=== PATIENT | female | born 1985 | race Two or more races ===

== ENCOUNTER 2025-04-23 07:38 | Inpatient (IN) | payer OTHER ==
[~2025-04-23] VITALS: Ht 157.5 cm; Wt 99.0 kg
[2025-04-23] VITALS (9 sets, daily range): BP systolic 118–162; BP diastolic 74–89; PULSE 60–78; RESP 16–22; TEMP 97.9–98.1; O2SAT 93–99
--- NOTE | 2025-04-23 07:45 | ECG ---
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
--- NOTE | 2025-04-23 08:10 | ED.PDOC ---
HPI Comments A 39 YEAR OLD FEMALE PRESENTS TO THE ED WITH COMPLAINT OF CHEST PAIN . PATIENT STATES SHE HAS BEEN HAVING CHEST PAIN SINCE 5:30 A.M. PATIENT STATES THE PAIN IS SUBSTERNAL, RADIATING TO HER ESOPHAGUS AND RADIATING TO THE RIGHT UPPER BACK. PATIENT STATES THE PAIN IS BURNING IN NATURE, CONSTANT BUT DENIES ANY ASSOCIATED EXACERBATING OR RELIEVING FACTORS. PATIENT STATES SHE HAS CURRENT STRESSORS AT HOME OF FAMILY. PATIENT DENIES ANY PAST CARDIAC HISTORY PATIENT STATES SHE HAS HAD THESE SYMPTOMS EARLIER THIS YEAR. PATIENT DENIES FEVER, CHILLS, SHORTNESS OF BREATH, CHEST PAIN, ABDOMINAL PAIN, NAUSEA, VOMITING, HEADACHE, OR OTHER COMPLAINTS. NO OTHER SYMPTOMS OR MODIFYING FACTORS AT THIS TIME. PATIENT IS ALERT, ORIENTED X 4, AND HAS STEADY GAIT. Chief Complaint: Chest Pain Time Seen by MD: 08:05 Reviewed Notes: Nurses Notes, Medications, Allergies Allergies: Uncoded Allergies: SULFA (Allergy, Unknown, 04/23/25) Information Source: Patient Mode of Arrival: Ambulatory Brought in by: SELF Severity: Moderate Timing: Hours Duration: Since onset Prehospital treatment: None Location: Chest (R) Radiation: Back Onset: At Rest History of: Similar pain in past Modifying Factors: Other Associated Signs and Symptoms: N/V Past Medical History PAST MEDICAL HISTORY: Denies Surgical History: Denies all surgeries LAPEL PADDER History: Denies all LAPEL PADDER Hx Family History Family History: Reviewed,noncontributory to illness Social History Smoker: Non-Smoker Alcohol: Denies ETOH Use Drugs: Denies Drug Use Lives In: Home Constitutional: reports: others (ANXIOUS ); denies: chills, diaphoresis, fatigue, fever, malaise, sweats, weakness EENTM: denies: blurred vision, double vision, ear bleeding, ear discharge, ear drainage, ear pain, ear ringing, eye pain, eye redness, hearing loss, mouth pain, mouth swelling, nasal discharge, nose bleeding, nose congestion, nose pain, photophobia, tearing, throat pain, throat swelling, voice changes, others Respiratory: denies: cough, hemoptysis, orthopnea, SOB at rest, shortness of breath, SOB with excertion, stridor, wheezing, others Cardiovascular: reports: chest pain; denies: dizzy spells, diaphoresis, Dyspnea on exertion, edema, irregular heart beat, left arm pain, lightheadedness, palpitations, PND, syncope, others Gastrointestinal: reports: nausea, vomiting; denies: abdomen distended, abdominal pain, blood streaked bowels, constipated, diarrhea, dysphagia, difficulty swallowing, hematemesis, melena, poor appetite, poor fluid intake, rectal bleeding, rectal pain, others Genitourinary: denies: abnormal vagina bleeding, burning, dyspareunia, dysuria, flank pain, frequency, hematuria, incontinence, pain, , vagina discharge, urgency, others Neurological: denies: dizziness, fainting, headache, left sided numbness, left sided weakness, numbness, paresthesia, pre-existing deficit, right sided numbness, right sided weakness, seizure, speech problems, tingling, tremors, weakness, others Musculoskeletal: denies: back pain, gout, joint pain, joint swelling, muscle pain, muscle stiffness, neck pain, others Integumetry: denies: bruises, change in color, change in hair/nails, dryness, laceration, lesions, lumps, rash, wounds, others Allergic/Immunocompromised: denies: Difficulty Healing, Frequent Infections, Hives, Itching, others Hematologic/Lymphatic: denies: anemia, blood clots, easy bleeding, easy bruising, swollen glands, others Endocrine: denies: excessive hunger, excessive sweating, excessive thirst, excessive urination, flushing, intolerance to cold, intolerance to heat, unexplained weight gain, unexplained weight loss, others Psychiatric: denies: anxiety, bipolar disorder, depression, hopeless, panic disorder, schizophrenia, sleepless, suicidal, others All Other Systems: Reviewed and Negative Physical Exam General Appearance: Mild Distress, Normal, Other (ANXIOUS ) HEENT: Normal ENT Inspection, PERRL/EOMI, Pharynx Normal, TMs Normal Neck: Full Range of Motion, Non-Tender, Normal, Normal Inspection Respiratory: Chest Non-Tender, Lungs Clear, No Accessory Muscle Use, No Respiratory Distress, Normal Breath Sounds Cardiovascular: No Edema, No JVD, No Murmur, No Gallop, Normal Peripheral Pulses, Regular Rate/Rhythm Breast Exam: Deferred Gastrointestinal: No Organomegaly, Non Tender, No Pulsatile Mass, Normal Bowel Sounds, Soft Genitalia: Deferred Pelvic: Deferred Rectal: Deferred Extremities: No calf tenderness, Normal capillary refill, Normal inspection, Normal range of motion, Non-tender, No pedal edema Musculoskeletal : Apperance: Normal Neurologic: Alert, attenuator II-XII nml as Tested, No Motor Deficits, Normal Affect, Normal Mood, No Sensory Deficits Cerebellar Function: Normal Reflexes: Normal Skin: Dry, Normal Color, Warm Peripheral Pulses: 2+ carotid (R), 2+ carotid (L) Lymphatic: No Adenopathy EKG EKG : Pulse Rate (adult): 71 [place]: Normal Cardiac Rhythm: NSR Block: None Hypertrophy: LAE ST: Normal Was a procedure done? Was a procedure done?: No CP Differential Dx Differential Diagnosis: A-fib, A-Flutter, Angina, Anxiety / Panic Attack, Hyperthyroidism, Hyperventilation Differential Diagnosis: Chest Wall Pain, Costochondritis, Esophageal reflux/spasm, Gastritis, Myocardial Infarction X-Ray, Labs, Meds, VS Vital Signs Date Time Temp Pulse Resp B/P (MAP) Pulse Ox O2 Delivery O2 Flow Rate FiO2 04/23/25 08:51 68 04/23/25 08:10 71 04/23/25 07:52 97.8 80 18 150/105 98 97.8 04/23/25 07:44 71 Lab Test 04/23/25 09:02 04/23/25 07:50 Range/Units Troponin I High Sensitivity Pending 58 *H </=34 ng/L White Blood Count Pending Red Blood Count Pending Hemoglobin Pending Hematocrit Pending Mean Corpuscular Volume Pending Mean Corpuscular Hemoglobin Pending Mean Corpuscular Hemoglobin Concent Pending Red Cell Distribution Width Pending Platelet Count Pending Mean Platelet Volume Pending Neutrophils (%) (Auto) Pending Lymphocytes (%) (Auto) Pending Monocytes (%) (Auto) Pending Basophils (%) (Auto) Pending Neutrophils # (Auto) Pending Lymphocytes # (Auto) Pending Monocytes # (Auto) Pending Sodium Level 139 136-145 mmol/L Potassium Level 4.2 3.5-5.1 mmol/L Chloride Level 106 98-107 mmol/L Carbon Dioxide Level 22 20-31 mmol/L Anion Gap 11 5-15 Blood Urea Nitrogen 7 L 9-23 mg/dL Creatinine 0.68 0.550-1.02 mg/dL Glomerular Filtration Rate Calc 112 >90 mL/min BUN/Creatinine Ratio 10.3 10.0-20.0 Serum Glucose 100 74-106 mg/dL Calcium Level 9.5 8.7-10.4 mg/dL Total Bilirubin 0.5 0.2-1.0 mg/dL Aspartate Amino Transferase (AST) 22 13-40 U/L Alanine Aminotransferase (ALT) 22 7-40 U/L Alkaline Phosphatase 105 46-116 U/L Total Protein 8.0 5.7-8.2 g/dL Albumin 4.5 3.2-4.8 g/dL Thyroid Stimulating Hormone (TSH) 2.48 0.55-4.78 uIU/mL [place] [address] Ph: [phone] DIAGNOSTIC IMAGING Diagnostic Imaging Report : [id number] Signed PATIENT: JESUS ALBERTO MARIANO ACCT: [id number] UNIT: [id number] : 1985 LOC: ER ROOM / BED: / AGE / SEX: 39 / F ADM STATUS: REG ER SERVICE 3 ORDERING PHYSICIAN: LINDA SAUL MD PROCEDURE(s): CXRP - CHEST PORTABLE REASON: CHEST PAIN ORDER NUMBER(s): [id number], ACCESSION NUMBER(s): [id number] CHEST RADIOGRAPH Indication: CHEST PAIN Technique: XY CHEST PORTABLE Comparison: None FINDINGS: The cardiac silhouette is unremarkable. The lungs demonstrate no pulmonary airspace consolidation. The pulmonary vasculature is unremarkable. There is no pleural effusion. There is no pneumothorax. IMPRESSION: No pulmonary airspace consolidation. ATED BY: RENATA STARR MD DICTATED DATE/TIME: 04/23/25827 SIGNED BY: RENATA STARR MD SIGNED DATE/TIME: 04/23/25827 CC: X-Ray, Labs, Meds, VS Comment COURSE: EXTERNAL MEDICAL RECORDS REVIEWED: [NONE] INDEPENDENT HISTORIANS: [NONE] SOCIAL DETERMINANTS OF HEALTH: [NONE] LABS ORDERED: CBC, CMP, 3 TIMES EKG, 3 TIMES TROPONIN, TSH REVIEWED AND INTERPRETED RESULTS: NONE IMAGING ORDERED: NONE TREATMENTS ORDERED: ASA 162 MG, MORPHINE, NITRO, ZOFRAN 4 MG, 1 L NORMAL SALINE. PROCEDURES PERFORMED: NONE CRITICAL CARE TIME: NONE I HAVE DISCUSSED THE PATIENT WITH THE ATTENDING PHYSICIAN DR. SAUL AND HE AGREES WITH THE PATIENT'S PLAN OF CARE AND DISPOSITION. PATIENT WILL BE ADMITTED TO THE HOSPITALIST TEAM FOR THE FOR EVALUATION PATIENT HAS A NOTED ACUTE ATYPICAL CHEST PAIN AND ELEVATED TROPONINS. PATIENT WILL NEED FURTHER CARDIAC WORKUP AND CONSULTATION. Time of 1ST Reevaluation: 08:35 Reevaluation 1ST: Unchanged Time of 2ND Reevaluation: 09:00 Reevaluation 2ND: Unchanged Patient Education/Counseling: Diagnosis, Treatment Family Education/Counseling: Diagnosis, Treatment SEPSIS Sepsis Screen Date sepsis recognized/suspect: Apr 23, 2025 Time Sepsis recognized/suspect: 752 Recent Procedure: No On Antibiotic Therapy: No Respiratory Rate >20: No Heart Rate >90: No Temp<36 C (96.8 F) or >38.3 C: No SBP <90 or MAP <65 mmHG: No New Acute Mental Status Change: No Is the patient on CPAP, BIPAP,: No Physician Orders Complete Blood Count (04/23/25 07:40) Chest Portable (04/23/25 07:44) Troponin-I Hs (04/23/25 08:40) Troponin-I Hs (04/23/25 10:40) Electrocardigram (04/23/25 08:40) Electrocardigram (04/23/25 10:40) Graduate Teaching Assistant (04/23/25 08:46) Blood Pressure (04/23/25 08:46) Pulse Oximetry (04/23/25 08:46) * Cardiology Consult (04/23/25 08:56) Echo 2d Mode Cardiac Dop (04/23/25 09:11) Vital Signs Date Time Temp Pulse Resp B/P (MAP) Pulse Ox O2 Delivery O2 Flow Rate FiO2 04/23/25 08:51 68 04/23/25 08:10 71 04/23/25 07:52 97.8 80 18 150/105 98 97.8 04/23/25 07:44 71 Laboratory Tests Test 04/23/25 07:50 White Blood Count Pending Departure 1 Departure Time of Disposition: 09:00 Impression: Primary Impression: Acute chest pain Additional Impression: Elevated troponin Disposition: 09 ADMITTED INPATIENT Condition: Serious Critical Care Note Critical Care Time?: No Stability Stability form required: Yes Unstable for transfer: Requires medication, ED Physician Assesment, Possible ra pid decline Heart Score Heart Score: Heart Score Response (Comments) Value History N/A 0 EKG Normal 0 Age <45 0 Risk Factors No known risk factors 0 Troponin 1-2 x's Normal limit 1 Total 1 I personally scribed for RAMILA BRADFORD ([email or web address]) on 04/23/25 at 08:10. Electronically submitted by Norberto Macdonald (ISIS). I personally scribed for RAMILA BRADFORD ([email or web address]) on 04/23/25 at 08:18. Electronically submitted by Norberto Macdonald (ISIS). I personally scribed for RAMILA BRADFORD ([email or web address]) on 04/23/25 at 08:38. Electronically submitted by Norberto Macdonald (ISIS). I personally scribed for RAMILA BRADFORD ([email or web address]) on 04/23/25 at 09:02. Electronically submitted by Norberto Macdonald (ISIS). RAMILA BRADFORD Apr 23, 2025 08:10
[2025-04-23] MEDS: LIDOCAINE VISCOUS 2% 15ML UD PO ONE (08:18)
[2025-04-23] MEDS: MAALOX PLUS or MAALOX 30 ML PO ONE (08:19)
[2025-04-23] MEDS: FAMOTIDINE 20 MG TAB PO ONE (08:20)
[2025-04-23] MEDS: DONNATAL 5ml ORAL Elix (BELLADONNA ALK-PHENOBARB) PO ONE (08:23)
--- NOTE | 2025-04-23 08:25 | DVH ---
CHEST RADIOGRAPH Indication: CHEST PAIN Technique: XY CHEST PORTABLE Comparison: None FINDINGS: The cardiac silhouette is unremarkable. The lungs demonstrate no pulmonary airspace consolidation. The pulmonary vasculature is unremarkable. There is no pleural effusion. There is no pneumothorax. IMPRESSION: No pulmonary airspace consolidation.
[2025-04-23 08:31] LABS: Alanine Aminotransferase 22 U/L (7-40); Albumin 4.5 g/dL (3.2-4.8); Alkaline Phosphatase 105 U/L (46-116); Anion Gap 11 (5-15); BUN/Creatinine Ratio 10.3 (10.0-20.0); Calcium 9.5 mg/dL (8.7-10.4); Carbon Dioxide 22 mmol/L (20-31); Chloride 106 mmol/L (98-107); Glucose 100 mg/dL (74-106); Potassium 4.2 mmol/L (3.5-5.1); Sodium 139 mmol/L (136-145); Total Protein 8.0 g/dL (5.7-8.2)
[2025-04-23 08:32] LABS: Bilirubin, Total 0.5 mg/dL (0.2-1.0)
[2025-04-23 08:37] LABS: Blood Urea Nitrogen 7 mg/dL (9-23)
--- NOTE | 2025-04-23 09:12 | DVHHP2 ---
Admitting Diagnosis: Chest pain History of Present Illness A 39 YEAR OLD FEMALE PRESENTS TO THE ED WITH COMPLAINT OF CHEST PAIN . PATIENT STATES SHE HAS BEEN HAVING CHEST PAIN SINCE 5:30 A.M. PATIENT STATES THE PAIN IS SUBSTERNAL, RADIATING TO HER ESOPHAGUS AND RADIATING TO THE RIGHT UPPER BACK. PATIENT STATES THE PAIN IS BURNING IN NATURE, CONSTANT BUT DENIES ANY ASSOCIATED EXACERBATING OR RELIEVING FACTORS. PATIENT STATES SHE HAS CURRENT STRESSORS AT HOME OF FAMILY. PATIENT DENIES ANY PAST CARDIAC HISTORY PATIENT STATES SHE HAS HAD THESE SYMPTOMS EARLIER THIS YEAR. PATIENT DENIES FEVER, CHILLS, SHORTNESS OF BREATH, CHEST PAIN, ABDOMINAL PAIN, NAUSEA, VOMITING, HEADACHE, OR OTHER COMPLAINTS. NO OTHER SYMPTOMS OR MODIFYING FACTORS AT THIS TIME. PATIENT IS ALERT, ORIENTED X 4, AND HAS STEADY GAIT. PAST MEDICAL HISTORY: Denies Surgical History: Denies all surgeries FIRE AND SAFETY HELPER History: Denies all FIRE AND SAFETY HELPER Hx Family History Family History: Reviewed,noncontributory to illness Social History Smoker: Non-Smoker Alcohol: Denies ETOH Use Drugs: Denies Drug Use Lives In: Home Allergies: Uncoded Allergies: SULFA (Allergy, Unknown, 04/23/25) Current Medications Current Medications Medications (Trade) Dose Ordered Sig/Sven Route PRN Reason Start Time Stop Time Status Last Admin Sodium Chloride (Saline Lock Ns) 10 ml Q8HR IV 04/23/25 14:00 Docusate Sodium (Colace Capsule) 100 mg BIDPRN PRN PO FOR CONSTIPATION 04/23/25 09:15 Acetaminophen (Tylenol Tablet) 650 mg Q6HP PRN PO PAIN SCALE 1-3 OR TEMP>100.4 04/23/25 09:15 Acetaminophen/ Hydrocodone Bitart ([place] 5/325MG Tab) 1 tab Q4HP PRN PO MODERATE PAIN (4-6 PAIN SCALE) 04/23/25 09:15 Hydromorphone HCl (Dilaudid Injection) 0.5 mg Q4HP PRN IV SEVERE PAIN (7-10 PAIN SCALE) 04/23/25 09:15 Ondansetron HCl (Zofran) 4 mg Q4HP PRN IV NAUSEA / VOMITING 04/23/25 09:15 Enoxaparin Sodium (Lovenox) 40 mg DAILY SC 04/23/25 10:00 Nitroglycerin (Ntrostat Sublingual) 0.4 mg Q5MINP PRN SL FOR CHEST PAIN 04/23/25 09:15 Morphine Sulfate 2 mg Q30M PRN IV FOR CHEST PAIN 04/23/25 09:15 Vital Signs Vital Signs Date Time Temp Pulse Resp B/P (MAP) Pulse Ox O2 Delivery O2 Flow Rate FiO2 04/23/25 10:55 73 18 137/72 04/23/25 10:29 97 Room Air* 0 21 04/23/25 10:24 98.1 98.1 Physical Exam Generally-39 years old woman, overweight, sitting on chair. No apparent distress HEENT-atraumatic Heart-regular rate and rhythm lungs clear to auscultation Abdomen soft nontender nondistended Musculoskeletal-no edema cyanosis Neuro-AO x3 no focal deficits SEPSIS Sepsis Screen Date sepsis recognized/suspect: Apr 23, 2025 Time Sepsis recognized/suspect: 752 Recent Procedure: No On Antibiotic Therapy: No Respiratory Rate >20: No Heart Rate >90: No Temp<36 C (96.8 F) or >38.3 C: No SBP <90 or MAP <65 mmHG: No New Acute Mental Status Change: No Is the patient on CPAP, BIPAP,: No Physician Orders Complete Blood Count (04/23/25 07:40) Chest Portable (04/23/25 07:44) Troponin-I Hs (04/23/25 10:40) Electrocardigram (04/23/25 08:40) Electrocardigram (04/23/25 10:40) Swing Frame Grinder Operator (04/23/25 08:46) Blood Pressure (04/23/25 08:46) Pulse Oximetry (04/23/25 08:46) * Cardiology Consult (04/23/25 08:56) Echo 2d Mode Cardiac Dop (04/23/25 09:11) Admit (04/23/25 09:12) Code Status (04/23/25 09:12) Vital Signs .PER UNIT PROTOCOL (04/23/25 09:12) Review Orders With Adm. (04/23/25 09:12) Encourage Activity As Tolerate (04/23/25 09:12) Sodium Chloride Lock (Saline Lock Ns) (04/23/25 14:00) Docusate Sodium Capsule (Colace Capsule) (04/23/25 09:15) Acetaminophen Tablet (Tylenol Tablet) (04/23/25 09:15) Notify Md Of Changes From Base (04/23/25 09:12) Advance Directive (04/23/25 09:12) Patient Condition (04/23/25 09:12) Allergies (04/23/25 09:12) Hydrocodone-Acet 5/325mg Tab ([place] 5/32 (04/23/25 09:15) Hydromorphone Injection (Dilaudid Inject (04/23/25 09:15) Ondansetron Hcl (Zofran) (04/23/25 09:15) Enoxaparin Sodium (Lovenox) (04/23/25 10:00) Nitroglycerin Sublingual (Ntrostat Subli (04/23/25 09:15) Morphine Sulfate Injection (04/23/25 09:15) Stat Ekg For Chest Pain (04/23/25 09:12) Notify Md Of Changes From Base (04/23/25 09:12) Psychological Tests Sales Agent For 24 Hours (04/23/25 09:12) Emergency Dysrhythmia Protocol (04/23/25 09:12) Rhythm Strips Once Every Shift (04/23/25 09:12) Oxygen By Nasal Cannula (04/23/25 09:12) Vital Signs Date Time Temp Pulse Resp B/P (MAP) Pulse Ox O2 Delivery O2 Flow Rate FiO2 04/23/25 10:55 73 18 137/72 04/23/25 10:29 73 18 97 Room Air* 0 21 04/23/25 10:24 98.1 73 18 137/72 (93) 97 98.1 04/23/25 09:45 72 18 131/68 (89) 98 04/23/25 09:45 131/68 04/23/25 08:51 68 04/23/25 08:10 71 04/23/25 07:52 97.8 80 18 150/105 98 97.8 04/23/25 07:44 71 Laboratory Tests Test 04/23/25 07:50 White Blood Count Pending Medications Medications Dose Ordered Sig/Sven Route Start Time Stop Time Status Last Admin Dose Admin Aspirin 162 mg ONCE ONCE PO 04/23/25 08:45 04/23/25 08:47 DC 04/23/25 10:00 Morphine Sulfate 2 mg ONCE ONCE IV 04/23/25 08:45 04/23/25 08:47 DC 04/23/25 10:55 Nitroglycerin 0.4 mg ONCE ONCE SL 04/23/25 08:45 04/23/25 08:47 DC 04/23/25 09:45 Ondansetron HCl 4 mg ONCE ONCE IV 04/23/25 10:00 04/23/25 10:01 DC 04/23/25 10:54 Sodium Chloride 1,000 ml @ 1,000 mls/hr Q1H ONCE IV 04/23/25 08:45 04/23/25 09:44 DC 04/23/25 10:00 Results Labs Test 04/23/25 09:02 04/23/25 07:50 Range/Units Troponin I High Sensitivity 196 *H </=34 ng/L Sodium Level 139 136-145 mmol/L Potassium Level 4.2 3.5-5.1 mmol/L Chloride Level 106 98-107 mmol/L Carbon Dioxide Level 22 20-31 mmol/L Anion Gap 11 5-15 Blood Urea Nitrogen 7 L 9-23 mg/dL Creatinine 0.68 0.550-1.02 mg/dL Glomerular Filtration Rate Calc 112 >90 mL/min BUN/Creatinine Ratio 10.3 10.0-20.0 Serum Glucose 100 74-106 mg/dL Calcium Level 9.5 8.7-10.4 mg/dL Total Bilirubin 0.5 0.2-1.0 mg/dL Aspartate Amino Transferase (AST) 22 13-40 U/L Alanine Aminotransferase (ALT) 22 7-40 U/L Alkaline Phosphatase 105 46-116 U/L Total Protein 8.0 5.7-8.2 g/dL Albumin 4.5 3.2-4.8 g/dL Thyroid Stimulating Hormone (TSH) 2.48 0.55-4.78 uIU/mL Primary Diagnosis Chest pain rule out ACS Plan Troponin Trend troponin until plateau Check EKG Check echo of the heart Cardiology consult in ED. Further recommendation Cardiology diet Full code Lovenox for DVT prophylaxis No GI prophylaxis needed Plan discussed with: Patient Problems List: (1) Acute chest pain Status: Acute (2) Elevated troponin Status: Acute Date of Service: Apr 23, 2025 Billing Provider: NATALIE ALUGHLIN MD Common Visit Codes: [id number] INP/OBS CARE (HIGH) NATALIE LAUGHLIN MD Apr 23, 2025 09:12
[2025-04-23] MEDS ORDERED: HYDROmorphone HCL 2 MG/ML VL/or syr IV PRN (09:15)
[2025-04-23] MEDS ORDERED: DOCUSATE SOD 100 MG CAP PO PRN (09:15)
[2025-04-23] MEDS ORDERED: NITROGLYCERIN 0.4 MG SL TAB SL PRN (09:15)
[2025-04-23] MEDS: NITROGLYCERIN 0.4 MG SL TAB SL ONE (09:45)
[2025-04-23] MEDS: SODIUM CHLORIDE 0.9% 1,000 ML IV ONE (10:00)
[2025-04-23] MEDS: ENOXAPARIN SOD 40 MG/0.4 ML SYRINGE SC SCH (10:00)
[2025-04-23] MEDS: ONDANSETRON HCL 4 MG/2 ML VIAL IV ONE (10:54)
[2025-04-23] MEDS: MORPHINE SULFATE INJ 2 MG/ml SYRG IV ONE (10:55)
[2025-04-23 11:39] LABS: Hematocrit 43.9 % (36.0-46.0); Hemoglobin 14.3 g/dL (12.2-16.2); Mean Corpuscular Hemoglobin 27.7 pg (28.0-32.0); Mean Corpuscular Volume 84.8 fL (80.0-100.0); Nucleated Red Blood Cells % 0.1 %
--- NOTE | 2025-04-23 12:52 | DVHINCON2 ---
Date Seen: Apr 23, 2025 Referring Physician Shawanda Reason for Consultation CP, Positive Troponins History of Present Illness 39-year-old female with PMH for palpitations presents to the hospital with chest pain. Patient states she has been having these episodes couple of times that started approximately 1 year before. Patient states started feeling her heart racing and beating really strongly and started having chest pain, burning/sharp, retrosternal, radiating to right lower thoracic area, and right upper back. Upon evaluation in the ER patient had initial troponin of 58 trending up to 196, 1602. EKG reviewed and shows sinus rhythm at 71 beats per minute with bord donnell inferolateral ST and T-wave abnormality. Past Medical History No previous cardiac history Past Surgical History No previous cardiac surgeries Social History Denies tobacco, illicit drug use, occasional alcohol beverage. Allergies: Uncoded Allergies: SULFA (Allergy, Unknown, 04/23/25) Current Medications Current Medications Medications (Trade) Dose Ordered Sig/Sven Route PRN Reason Start Time Stop Time Status Last Admin Sodium Chloride (Saline Lock Ns) 10 ml Q8HR IV 04/23/25 14:00 Docusate Sodium (Colace Capsule) 100 mg BIDPRN PRN PO FOR CONSTIPATION 04/23/25 09:15 Acetaminophen (Tylenol Tablet) 650 mg Q6HP PRN PO PAIN SCALE 1-3 OR TEMP>100.4 04/23/25 09:15 Acetaminophen/ Hydrocodone Bitart ([place] 5/325MG Tab) 1 tab Q4HP PRN PO MODERATE PAIN (4-6 PAIN SCALE) 04/23/25 09:15 Hydromorphone HCl (Dilaudid Injection) 0.5 mg Q4HP PRN IV SEVERE PAIN (7-10 PAIN SCALE) 04/23/25 09:15 Ondansetron HCl (Zofran) 4 mg Q4HP PRN IV NAUSEA / VOMITING 04/23/25 09:15 Enoxaparin Sodium (Lovenox) 40 mg DAILY SC 04/23/25 10:00 Nitroglycerin (Ntrostat Sublingual) 0.4 mg Q5MINP PRN SL FOR CHEST PAIN 04/23/25 09:15 Morphine Sulfate 2 mg Q30M PRN IV FOR CHEST PAIN 04/23/25 09:15 Review of Systems Constitutional: No: Fever, Chills, Sweats, Weakness, Malaise, Other Eyes: No: Pain, Vision change, Conjunctivae inflammation, Eyelid inflammation, Other, Redness ENT: No: Ear pain, Ear discharge, Nose pain, Nose discharge, Nose congestion, Mouth pain, Mouth swelling, Throat pain, Throat swelling, Other Respiratory: No: Cough, Dry, Shortness of breath, SOB with exertion, Wheezing, Hemoptysis, Pleuritic Pain, Sputum, Wheezing, Other Cardiovascular: ; No: Chest Pain Palpitations, Orthopnea, Paroxysmal Noc. Dyspnea, Edema, Lt Headedness, Other Gastrointestinal: No: Nausea, Vomiting, Abdominal Pain, Diarrhea, Constipation, Melena, Hematochezia, Other Genitourinary: No Dysuria, No Frequency, No Incontinence, No Hematuria, No Retention, No Other Musculoskeletal: neck pain; No: other, shoulder pain, arm pain, back pain, hand pain, leg pain, foot pain Skin: No: Rash, Lesions, Jaundice, Bruising, Other Neurological: Other (Dizziness, headache.); No: Weakness, Numbness, Incoord ination, Change in speech, Confusion, Seizures Vital Signs Vital Signs Date Time Temp Pulse Resp B/P (MAP) Pulse Ox O2 Delivery O2 Flow Rate FiO2 04/23/25 12:00 71 18 134/76 (95) 97 04/23/25 10:29 Room Air* 0 21 04/23/25 10:24 98.1 98.1 Physical Exam General appearance: Patient is well-developed, well-nourished, in no acute distress. HEENT: Exam shows: Normocephalic, atraumatic, PERRLA, EOMI Neck: Supple, no bruits Chest: Equal chest excursion bilaterally. Breath sounds normal-no rales or wheezes. Heart: Rhythm: Regular rate; no murmur or gallop Abdomen: Exam shows: Soft, nontender, nondistended Musculoskeletal: No clubbing, no cyanosis, no lower extremity edema Dermatology: Skin warm, moist. Neurological: Exam shows: Alert and oriented x4, normal speech Available prior records, labs, EKG, rhythm strips reviewed and interpreted Labs/Diagnostic Data Labs Test 04/23/25 11:10 04/23/25 07:50 Range/Units White Blood Count 14.0 H 4.4-10.8 10^3/uL Red Blood Count 5.18 4.0-5.20 10^6/uL Hemoglobin 14.3 12.2-16.2 g/dL Hematocrit 43.9 36.0-46.0 % Mean Corpuscular Volume 84.8 80.0-100.0 fL Mean Corpuscular Hemoglobin 27.7 L 28.0-32.0 pg Mean Corpuscular Hemoglobin Concent 32.6 32.0-36.0 g/dL Red Cell Distribution Width 14.1 11.8-14.3 % Platelet Count 251 140-450 10^3/uL Mean Platelet Volume 9.9 6.9-10.8 fL Neutrophils (%) (Auto) 85.4 H 37.0-80.0 % Lymphocytes (%) (Auto) 10.1 10.0-50.0 % Monocytes (%) (Auto) 3.5 0.0-12.0 % Eosinophils (%) (Auto) 0.3 0.0-7.0 % Basophils (%) (Auto) 0.7 0.0-2.0 % Neutrophils # (Auto) 12.0 H 1.6-8.6 10 ^3/uL Lymphocytes # (Auto) 1.4 0.4-5.4 10 ^3/uL Monocytes # (Auto) 0.5 0-1.3 10 ^3/uL Eosinophils # (Auto) 0 0-0.8 10 ^3/uL Basophils # (Auto) 0.1 0-0.2 10 ^3/uL Nucleated Red Blood Cells 0.1 % Troponin I High Sensitivity 1602 *H </=34 ng/L Sodium Level 139 136-145 mmol/L Potassium Level 4.2 3.5-5.1 mmol/L Chloride Level 106 98-107 mmol/L Carbon Dioxide Level 22 20-31 mmol/L Anion Gap 11 5-15 Blood Urea Nitrogen 7 L 9-23 mg/dL Creatinine 0.68 0.550-1.02 mg/dL Glomerular Filtration Rate Calc 112 >90 mL/min BUN/Creatinine Ratio 10.3 10.0-20.0 Serum Glucose 100 74-106 mg/dL Calcium Level 9.5 8.7-10.4 mg/dL Total Bilirubin 0.5 0.2-1.0 mg/dL Aspartate Amino Transferase (AST) 22 13-40 U/L Alanine Aminotransferase (ALT) 22 7-40 U/L Alkaline Phosphatase 105 46-116 U/L Total Protein 8.0 5.7-8.2 g/dL Albumin 4.5 3.2-4.8 g/dL Thyroid Stimulating Hormone (TSH) 2.48 0.55-4.78 uIU/mL Assessment * NSTEMI - mild borderline ST and T-wave abnormality on EKG review. Started on heparin drip. Aspirin continue daily. Check lipid panel. Follow up echocardiogram. Recommend cardiac catheterization +/- PCI. All risks, benefits, and alternatives of cardiac catheterization explained to the patient including the risk of stroke, [place], , coronary perforation, pericardial tamponade, contrast induced nephropathy, need for emergent CABG, mechanical support, mechanical ventilation, and bleeding from vascular complications from the procedure. Patient is agreeable to proceed with procedure. * Palpitations- continue telemetry monitoring. Check TSH/T4. If no significant events noted during admission recommend outpatient event monitoring. Case Discussed with Dr Michel. Continue telemetry monitoring for arrhythmias. Continue trending troponins. Started on heparin drip ACS protocol. Follow up echo cardiogram. Check UDS. Planned coronary angiogram. Keep NPO. Critical care, time spent: 49 minutes This medical document was created using an electronic medical record system with voice recognition software and computerized dictation system. Although this document has been carefully reviewed, there might still be some phonetic and typographical errors. Occasional wrong-word or ``sound-alike substitutions may have occurred due to the inherent limitations of voice recognition software. These areas are purely typographical due to imperfections of the software programs and do not reflect any compromise in the patient's medical care. Please read the chart carefully and recognize, using context, where these substitutions have occurred. Thank you for allowing me to participate in the management of this patient. The treatment plan was discussed with and agreed upon by patient/family including requesting consultants and ordering of imaging/procedures. Plan discussed with: Patient NYHA Physical activity limitations: Class2(Slight)fatigue,sob Date of Service: Apr 23, 2025 Billing Provider: JACQUELINE MIRANDA Cardiology Common Codes: 88301-[id number] INP/OBS CARE (High), [id number]-CYBHPSVO CARE 30-74 MIN JACQUELINE MIRANDA Apr 23, 2025 12:51
[2025-04-23 13:30] LABS: Opiate Scree,Urine Neg (NEGATIVE)
[2025-04-23] MEDS: VERAPAMIL 2.5MG/ML INJ 2ML VIAL IV ONE (13:30)
[2025-04-23] MEDS: ANGIOMAX 250 MG VIAL IV ONE (13:30)
[2025-04-23] MEDS: HEPARIN SODIUM (PORCINE) 5000 UNITS/ML 1ML VIAL ONE (13:30)
[2025-04-23 13:31] LABS: Amphetamine Screen, Urine Neg (NEGATIVE); Barbiturate Scree,Urine Neg (NEGATIVE); Benzodiazephine Screen, Urine Neg (NEGATIVE); Cannabinoid Screen, Urine Neg (NEGATIVE); Cocaine Screen, Urine Neg (NEGATIVE); Phencyclidine Screen, Urine Neg (NEGATIVE)
[2025-04-23] MEDS: MIDAZOLAM HCL 2MG/2ML 2ml VIAL (1mg/ml) ONE (13:31)
[2025-04-23] MEDS: fentaNYL CITRATE 100 MCG/2 ML VL ONE (13:31)
[2025-04-23] MEDS: SODIUM CHL 0.9% 0 ML ONE (13:32)
[2025-04-23] MEDS: IODIXANOL 320MG/ML 100ML BTL IV ONE (13:32)
[2025-04-23] MEDS: LIDOCAINE 2%HCL (LOCAL ANESTH.) INJ 20ML MDV ONE (13:32)
[2025-04-23] MEDS: NITROGLYCERIN 50MG/250ML 250 ML IV ONE (13:37)
[2025-04-23] MEDS: SODIUM CHLOR 0.9% PF (SALINE LOCK) 10ML VIAL/SYR IV SCH (14:00)
[2025-04-23] MEDS: SODIUM CHLORIDE 0.9% 1,000 ML IV SCH (15:12)
--- NOTE | 2025-04-23 15:35 | DVHOP ---
DATE OF SURGERY: 04/23/2025 TECHNIQUES PERFORMED: * Emergency case. * Ultrasound of right radial artery, management of conscious sedation. * Ultrasound-guided insertion of a 6-[place] arterial line in the right radial artery. * Left heart cath. * Left ventriculogram. * [place] selective left and right coronary artery angiography. ASSISTANTS: Assisted by our staff is Sera. Other assistants Felix Velasco, Sandra. INDICATIONS: The patient came with chest pain. Troponin keep on going, now it is more than 1000. DESCRIPTION OF PROCEDURE: As follows: Risks and benefits discussed. Counseling done, questions answered, information given and the patient had been brought to our systems testing laboratory technician. The patient's right radial area thoroughly cleaned with soap and Betadine and we had done ultrasound. A 6-[place] arterial line also had been placed in the right radial artery. We had put a TIG catheter 5-[place] 4.0 and the left coronary angiography was done after giving the cocktail of 100 mcg of the nitroglycerin, 2.5 mg of verapamil, 2000 units of the heparin in the right radial artery. Left coronary angiography was done with the help of a similar catheter. We also did a right coronary angiography with the help of the pigtail catheter. A complete left heart cath also had been done. The left ventriculogram was done in the right anterior oblique view with a total of 20 mL of dye. Post LV gram, left ventricular angiography had been performed with the help of pull-through technique. Aortic pressure also had been performed. J-wire was passed. Pigtail catheter also had been discontinued. Procedure completed. TR Band applied. IMPRESSION: * Normal left main. * Left anterior descending artery is a large artery, normal. Diagonal artery normal. * Circumflex, obtuse marginal artery are moderately large artery and is widely open. * The tiny branches coming out from the circumflex artery have a mild diffuse disease, but there is no stenosis and the smaller branches have diameter less than 1 mm. * The patient's right coronary artery is a large dominant artery and widely open and is normal. * The ejection fraction of the left ventricle is in the range of 65% and is normal. There is no wall motion abnormality. CONCLUSION: * There is no evidence to suggest any coronary artery occlusive disease. * There is a mild disease noted in the ____ branches coming out from the circumflex artery which is considered to be nonsignificant. * The ejection fraction of the right ventricle is 65% plus and is normal. PLAN OF ACTION: Advised for conservative medical treatment. Gregory Michel MD MP/MARIANGEL/LUCILA TID: [id number] RECEIPT: [id number]
--- NOTE | 2025-04-23 16:20 | DVHSR ---
APPROVED REPORT EXAM: LIMITED Two-dimensional and M-mode echocardiogram with Doppler and color Doppler. Blood Pressure: 150/105 mmHg INDICATION Chest Pain RISK FACTORS Obesity: Height: 5' 2", Weight: 191 DIMENSIONS LVDd 5.1 (3.8-5.7cm) LA (2D) 4.0 (1.9-4.0cm) Aortic Root 3.0 (2.0-3.7cm) LVDs 3.6 (2.5-4.0cm) LA (MM) (1.9-4.0cm) Aortic Cusp Exc 1.9 (1.5-2.0cm) EF (%) 55.0 (55-70%) Rt. Atrium 3.8 (1.9-4.0cm) Asc. Aorta cm IVSd 0.8 (0.7-1.1cm) RV (D) (1.8-2.4cm) PWd 0.9 (0.7-1.1cm) Mitral Valve Mitral Mitral Stenosis E wave 1.00m/s MV Mean GR. mmHg A wave 0.90m/s MV Peak GR. mmHg E/A ratio 1.1 2D MVA cm2 Aortic Valve Aortic Valve Aortic Stenosis V1 1.10m/s AO Mean GR. 6mmHg V2 1.50m/s AO Peak GR. 10mmHg LVOT Diameter 2.3 (1.8-2.4cm) Doppler CELESTINO 3.05cm2 Pulmonic Valve V2 0.90m/s Tricuspid Valve TR Velocity 2.30m/s RVSP 25mmHg Other Information Quality : Technically Limited Rhythm : Technically limited study due to body habitus. Conclusion NORMAL LV EF AND IS 65% NORMAL VALVES NORMAL RV FUNCTION NO EFFUSION
[2025-04-23] MEDS: IOHEXOL 350 MG/ML 100ML IJ ONE (17:12)
[2025-04-23] MEDS ORDERED: SEMA2INJ3 SC (17:35)
--- NOTE | 2025-04-23 18:11 | DVH ---
COMPUTERIZED TOMOGRAPHIC ANGIOGRAPHY OF THE CHEST WITH INTRAVENOUS CONTRAST REASON FOR EXAM: r/o PE COMPARISON: XY CHEST PORTABLE on DOS: 04/23/25 TECHNIQUE: The exam was performed on a multidetector spiral scanner. Spiral images were acquired from the thoracic inlet through the adrenal glands, during the bolus intravenous administration of contrast. Multiplanar maximum intensity projection (MIP) images were provided. Radiation optimization: All CT scans at this facility use at least one of these dose optimization techniques: Automated exposure control mA and/or kV adjustment per patient size (includes targeted exams where dose is matched to clinical indication) or iterative reconstruction. CONTRAST ADMINISTERED: 70 mL omnipaque 350 intravenously. RADIATION DOSE: CTDI: 26.86 mGy DLP: 954.08 mGy-cm FINDINGS: There is a 5 mm pleural-based nodule along the medial base of the right lower lobe. There is no bronchiectasis or honeycombing. There is no significant airspace disease. There is no pleural effusion. There is no pneumothorax. The visualized thyroid gland is unremarkable. The heart is at the upper limits of normal for size. There is no pericardial effusion. There is no thoracic aortic aneurysm. No pathologic lymphadenopathy is identified by size criteria. There is no pulmonary arterial filling defect as far as the subsegmental level to suggest pulmonary embolism. No acute osseous abnormality is identified. IMPRESSION: No evidence of pulmonary embolism as far as the subsegmental level. No thoracic aortic aneurysm. There is a 5 mm pleural-based nodule along the medial base of the right lower lobe of the lung. The Fleischner society guidelines are listed below for follow- up recommendation reference. Fleischner Society Guidelines for Incidental Pulmonary Nodules: SOLID NODULES Single low-risk: < 6 mm No follow up. 6-[address] at 6-12 months, then consider CT at 18-24 months. > [address] at 3 months, PET/CT or bx. Single high risk: < [address] at 12 months. 6-[address] at 6-12 months, then consider CT at 18-24 months. > [address] at 3 months, PET/CT or bx. Multiple low risk: < 6 mm No follow up. 6-[address] at 3-6 months, then consider CT at 18-24 months. > [address] at 3-6 months, then consider CT at 18-24 months. Multiple high risk: < [address] at 12 months. 6-[address] at 3-6 months, then CT at 18-24 months. > [address] at 3-6 months, then CT at 18-24 months. SUBSOLID NODULES Ground glass: < 6 mm No follow up. > [address] at 6-12 months, then CT every 2 years for 5 years. Part solid: < 6 mm No follow up. > [address] at 3-6 months. If stable with solid component <6mm, annual CT for 5 years. Multiple: < [address] at 3-6 months. If stable, consider CT at 2 and 4 years. > [address] at 3-6 months. Subsequent based on most suspicious nodule. Notes: Recommendations do not apply to cancer screening, patient with immunosuppression or known primary cancer. Reference: Radiology 2017; MacChristopherhon et al; 000:1-16
--- NOTE | 2025-04-23 18:42 | ECG ---
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
[2025-04-23] MEDS: ACETAMINOPHEN 325 MG TAB PO PRN (19:49)
--- NOTE | 2025-04-23 21:19 | ECG ---
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
[2025-04-23] MEDS: MORPHINE SULFATE INJ 2 MG/ml SYRG IV PRN (21:27)
--- NOTE | 2025-04-23 23:08 | DVHINCON2 ---
Date Seen: Apr 23, 2025 Referring Physician Shawanda Reason for Consultation CP, Positive Troponins History of Present Illness This is a 39-year-old female with a PMH of palpitations presents to the hospital with chest pain. Patient states she has been having these episodes couple of times that started approximately 1 year before. Patient states started feeling her heart racing and beating really strongly and started having chest pain, burning/sharp, retrosternal, radiating to right lower thoracic area, and right upper back. Upon evaluation in the ED patient had initial troponin of 58 trending up to 196, 1602. EKG reviewed and shows sinus rhythm at 71 beats per minute with borderline inferolateral ST and T-wave abnormality. Chest x-ray showed NAD. Patient was admitted to the hospital. I am asked to consult on this patient. Past Medical History No previous cardiac history Past Surgical History No previous cardiac surgeries Allergies: Uncoded Allergies: SULFA (Allergy, Unknown, 04/23/25) Home Meds Reported Medications Semaglutide (Ozempic) 2 Mg/3 Ml Inj, 2 MG SC, INJ 04/23/25 Current Medications Current Medications Medications (Trade) Dose Ordered Sig/Sven Route PRN Reason Start Time Stop Time Status Last Admin Sodium Chloride (Saline Lock Ns) 10 ml Q8HR IV 04/23/25 14:00 Docusate Sodium (Colace Capsule) 100 mg BIDPRN PRN PO FOR CONSTIPATION 04/23/25 09:15 Acetaminophen (Tylenol Tablet) 650 mg Q6HP PRN PO PAIN SCALE 1-3 OR TEMP>100.4 04/23/25 09:15 Acetaminophen/ Hydrocodone Bitart ([place] 5/325MG Tab) 1 tab Q4HP PRN PO MODERATE PAIN (4-6 PAIN SCALE) 04/23/25 09:15 Hydromorphone HCl (Dilaudid Injection) 0.5 mg Q4HP PRN IV SEVERE PAIN (7-10 PAIN SCALE) 04/23/25 09:15 Ondansetron HCl (Zofran) 4 mg Q4HP PRN IV NAUSEA / VOMITING 04/23/25 09:15 Enoxaparin Sodium (Lovenox) 40 mg DAILY SC 04/23/25 10:00 Nitroglycerin (Ntrostat Sublingual) 0.4 mg Q5MINP PRN SL FOR CHEST PAIN 04/23/25 09:15 Morphine Sulfate 2 mg Q30M PRN IV FOR CHEST PAIN 04/23/25 09:15 Review of Systems Constitutional: No: Fever, Chills, Sweats, Weakness, Malaise, Other Eyes: No: Pain, Vision change, Conjunctivae inflammation, Eyelid inflammation, Other, Redness ENT: No: Ear pain, Ear discharge, Nose pain, Nose discharge, Nose congestion, Mouth pain, Mouth swelling, Throat pain, Throat swelling, Other Respiratory: No: Cough, Dry, Shortness of breath, SOB with exertion, Wheezing, Hemoptysis, Pleuritic Pain, Sputum, Wheezing, Other Cardiovascular: ; No: Chest Pain Palpitations, Orthopnea, Paroxysmal Noc. Dyspnea, Edema, Lt Headedness, Other Gastrointestinal: No: Nausea, Vomiting, Abdominal Pain, Diarrhea, Constipation, Melena, Hematochezia, Other Genitourinary: No Dysuria, No Frequency, No Incontinence, No Hematuria, No Retention, No Other Musculoskeletal: neck pain; No: other, shoulder pain, arm pain, back pain, hand pain, leg pain, foot pain Skin: No: Rash, Lesions, Jaundice, Bruising, Other Neurological: Other (Dizziness, headache.); No: Weakness, Numbness, Incoordination, Change in speech, Confusion, Seizures Vital Signs Vital Signs Date Time Temp Pulse Resp B/P (MAP) Pulse Ox O2 Delivery O2 Flow Rate FiO2 04/23/25 12:15 66 04/23/25 12:00 18 134/76 (95) 97 04/23/25 10:29 Room Air* 0 21 04/23/25 10:24 98.1 98.1 Physical Exam GENERAL: Alert and oriented x 3. No acute distress. EYES: PERRL, EOMI. Anicteric. HENT: Moist mucous membranes. LUNGS: Clear to auscultation bilaterally. CARDIOVASCULAR: Regular rate and rhythm. ABDOMEN: Soft, nontender and nondistended. EXTREMITIES: No edema. NEUROLOGIC: No focal neurological deficits. SKIN: Warm, dry. Labs/Diagnostic Data Labs Test 04/23/25 13:13 04/23/25 11:55 04/23/25 11:10 04/23/25 07:50 Range/Units Urine Test Negative Negative Urine Opiates Screen Neg NEGATIVE Urine Fentanyl Screen Neg NEGATIVE Urine Barbiturates Screen Neg NEGATIVE Urine Phencyclidine Screen Neg NEGATIVE Urine Amphetamines Screen Neg NEGATIVE Urine Benzodiazepines Screen Neg NEGATIVE Urine Cocaine Screen Neg NEGATIVE Urine Cannabinoids Screen Neg NEGATIVE White Blood Count 14.0 H 4.4-10.8 10^3/uL Red Blood Count 5.18 4.0-5.20 10^6/uL Hemoglobin 14.3 12.2-16.2 g/dL Hematocrit 43.9 36.0-46.0 % Mean Corpuscular Volume 84.8 80.0-100.0 fL Mean Corpuscular Hemoglobin 27.7 L 28.0-32.0 pg Mean Corpuscular Hemoglobin Concent 32.6 32.0-36.0 g/dL Red Cell Distribution Width 14.1 11.8-14.3 % Platelet Count 251 140-450 10^3/uL Mean Platelet Volume 9.9 6.9-10.8 fL Neutrophils (%) (Auto) 85.4 H 37.0-80.0 % Lymphocytes (%) (Auto) 10.1 10.0-50.0 % Monocytes (%) (Auto) 3.5 0.0-12.0 % Eosinophils (%) (Auto) 0.3 0.0-7.0 % Basophils (%) (Auto) 0.7 0.0-2.0 % Neutrophils # (Auto) 12.0 H 1.6-8.6 10 ^3/uL Lymphocytes # (Auto) 1.4 0.4-5.4 10 ^3/uL Monocytes # (Auto) 0.5 0-1.3 10 ^3/uL Eosinophils # (Auto) 0 0-0.8 10 ^3/uL Basophils # (Auto) 0.1 0-0.2 10 ^3/uL Nucleated Red Blood Cells 0.1 % Troponin I High Sensitivity 1602 *H </=34 ng/L Sodium Level 139 136-145 mmol/L Potassium Level 4.2 3.5-5.1 mmol/L Chloride Level 106 98-107 mmol/L Carbon Dioxide Level 22 20-31 mmol/L Anion Gap 11 5-15 Blood Urea Nitrogen 7 L 9-23 mg/dL Creatinine 0.68 0.550-1.02 mg/dL Glomerular Filtration Rate Calc 112 >90 mL/min BUN/Creatinine Ratio 10.3 10.0-20.0 Serum Glucose 100 74-106 mg/dL Calcium Level 9.5 8.7-10.4 mg/dL Total Bilirubin 0.5 0.2-1.0 mg/dL Aspartate Amino Transferase (AST) 22 13-40 U/L Alanine Aminotransferase (ALT) 22 7-40 U/L Alkaline Phosphatase 105 46-116 U/L Total Protein 8.0 5.7-8.2 g/dL Albumin 4.5 3.2-4.8 g/dL Thyroid Stimulating Hormone (TSH) 2.48 0.55-4.78 uIU/mL Assessment NSTEMI. Palpitations. Plan/Recommendation I agree with your ongoing assessment and care of plan. Patient has been seen by Jimbo Ritter NP on my behalf, him and I discussed the plan with the patient. Continue telemetry monitoring for arrhythmias. Continue trending troponins. Started on heparin drip ACS protocol. Follow up echo cardiogram. Check UDS. Recommend cardiac catheterization +/- PCI. All risks, benefits, and alternatives of cardiac catheterization explained to the patient including the risk of stroke, [place], , coronary perforation, pericardial tamponade, contrast induced nephropathy, need for emergent CABG, mechanical support, mechanical ventilation, and bleeding from vascular complications from the procedure. Patient is agreeable to proceed with procedure. Keep NPO. Aspirin continue daily. Check lipid panel. Check TSH/T4. If no significant events noted during admission recommend outpatient event monitoring. Additional plan as per the hospital course. Plan discussed with: Patient NYHA Physical activity limitations: Class2(Slight)fatigue,sob Date of Service: Apr 23, 2025 Billing Provider: TASIA PERALTA MD Cardiology Common Codes: 02801-[id number] INP/OBS CARE (High), [id number] CARE 30-74 MIN TASIA PERALTA MD Apr 23, 2025 14:38
[2025-04-24] VITALS (8 sets, daily range): BP systolic 125–136; BP diastolic 77–86; PULSE 56–70; RESP 12–18; TEMP 97.6–98; O2SAT 94–98
[2025-04-24 06:23] LABS: Hematocrit 42.3 % (36.0-46.0); Hemoglobin 14.3 g/dL (12.2-16.2); Mean Corpuscular Hemoglobin 27.9 pg (28.0-32.0); Mean Corpuscular Volume 82.7 fL (80.0-100.0); Nucleated Red Blood Cells % 0.1 %
[2025-04-24] MEDS: HYDROcodone-ACET 5/325MG TAB PO PRN (06:29)
[2025-04-24 06:45] LABS: Albumin 4.0 g/dL (3.2-4.8); Alkaline Phosphatase 97 U/L (46-116); Anion Gap 11 (5-15); BUN/Creatinine Ratio 10.9 (10.0-20.0); Bilirubin, Total 0.5 mg/dL (0.2-1.0); Calcium 8.9 mg/dL (8.7-10.4); Carbon Dioxide 24 mmol/L (20-31); Chloride 105 mmol/L (98-107); Glucose 86 mg/dL (74-106); Potassium 3.6 mmol/L (3.5-5.1); Sodium 140 mmol/L (136-145); Total Protein 7.1 g/dL (5.7-8.2)
[2025-04-24 06:46] LABS: Alanine Aminotransferase 44 U/L (7-40); Blood Urea Nitrogen 6 mg/dL (9-23)
--- NOTE | 2025-04-24 07:38 | DVHPN2 ---
Subjective Last reported chest pain was overnight; currently with severe migraine; no more palpitation reported Reviewed: Care Plan, H&P, Labs, Medications, Previous Orders, Radiology, Other (Consultation) Changes from previous H/P or p: Changes Objective Vitals Vital Signs Date Time Temp Pulse Resp B/P (MAP) Pulse Ox O2 Delivery O2 Flow Rate FiO2 04/24/25 04:34 97.9 62 16 136/77 (96) 98 97.9 04/23/25 20:00 Room Air* 0 21 Intake/Output Intake and Output 04/24/25 07:00 Intake Total 2690 ml Balance 2690 ml Intake Oral 1690 ml IV Total 1000 ml # Voids 4 General Appearance: Alert, Oriented X3, Cooperative, mild distress (Due to migraine), Other (Morbidly obese) HEENT: Atraumatic Lungs: Clear to auscultation, Normal air movement Cardiovascular: Regular rate, Normal S1, Normal S2, No murmurs Abdomen: Normal bowel sounds, Soft, No tenderness Neuro: Normal speech, Cranial nerves 3-12 NL Skin: Other (Right radial artery left heart catheterization access site with no signs of bleeding/hematoma/infection; clean dressing) Psych/Mental Status: Mental status NL, Mood NL Medications Current Medications Medications Dose Ordered Sig/Sven Route Start Time Stop Time Status Last Admin Dose Admin Sodium Chloride 10 ml Q8HR IV 04/23/25 14:00 04/24/25 06:29 10 ML Docusate Sodium 100 mg BIDPRN PRN PO 04/23/25 09:15 Acetaminophen 650 mg Q6HP PRN PO 04/23/25 09:15 04/23/25 19:49 650 MG Acetaminophen/ Hydrocodone Bitart 1 tab Q4HP PRN PO 04/23/25 09:15 04/24/25 06:29 1 TAB Hydromorphone HCl 0.5 mg Q4HP PRN IV 04/23/25 09:15 Ondansetron HCl 4 mg Q4HP PRN IV 04/23/25 09:15 Enoxaparin Sodium 40 mg DAILY SC 04/23/25 10:00 Nitroglycerin 0.4 mg Q5MINP PRN SL 04/23/25 09:15 Morphine Sulfate 2 mg Q30M PRN IV 04/23/25 09:15 04/23/25 21:27 2 MG Ceftriaxone Sodium 50 ml @ 100 mls/hr DAILY@09 IV 04/24/25 09:00 Sodium Chloride 1,000 ml @ 125 mls/hr Q8H IV 04/23/25 15:00 04/23/25 23:00 125 MLS/HR Laboratory Results Laboratory Tests 04/24/25 04:47 Chemistry Test 04/23/25 07:50 04/24/25 04:47 Albumin 4.5 g/dL (3.2-4.8) 4.0 g/dL (3.2-4.8) Calcium Level 9.5 mg/dL (8.7-10.4) 8.9 mg/dL (8.7-10.4) Total Protein 8.0 g/dL (5.7-8.2) 7.1 g/dL (5.7-8.2) Coagulation Test 04/23/25 14:34 D-Dimer, Quantitative 0.43 mg/L FEU (0.0-0.49) LFT Test 04/23/25 07:50 04/24/25 04:47 Alanine Aminotransferase (ALT) 22 U/L (7-40) 44 U/L (7-40) H Alkaline Phosphatase 105 U/L (46-116) 97 U/L (46-116) Aspartate Amino Transferase (AST) 22 U/L (13-40) 116 U/L (13-40) H Total Bilirubin 0.5 mg/dL (0.2-1.0) 0.5 mg/dL (0.2-1.0) HgA1c, TSH Test 04/23/25 07:50 Thyroid Stimulating Hormone (TSH) 2.48 uIU/mL (0.55-4.78) Urinalysis Test 04/23/25 11:55 Urine Test Negative (Negative) Labs and/or images reviewed: Labs reviewed by me, Image(s) reviewed by me Assessment/Plan Assessment/Plan Covering: Chest pain due to NSTEMI; status post left heart catheterization on April 23, 2025 NSTEMI due to mild CAD; pulmonary embolism ruled out with chest angiogram Elevated liver enzymes due to NSTEMI 5 mm pleural-based nodule along the medial base of the right lower lobe of the lung Suspected sepsis with leukocytosis due to suspected complicated UTI with the acute cystitis without hematuria Morbid obesity; on compounded semaglutide as outpatient (15 mL per week) Mixed dyslipidemia; newly diagnosed during this hospitalization Palpitations Chronic migraines Reviewed lab work along with imaging studies Urine and blood cultures are pending Reviewed left heart catheterization report Reviewed echocardiogram results Started on aspirin and statin; encouraged the patient to take [id number] fish oil upon discharge Ordered hemoglobin A1c for risk factors assessment Continue DVT prophylaxis with enoxaparin 40 mg subcutaneous daily Was on heparin infusion initially that was stopped yesterday Continue telemetry Continue IV antibiotics Continue pain management as indicated; the patient was allowed to take her home Excedrin to control her migraine attack this morning Will need event monitor as outpatient if no arrhythmias were captured during the admission Will need follow up on the lung nodule as outpatient Counseled the patient on the importance of adopting healthy lifestyle with diet and exercise in order to lose weight Reviewed available EKGs along with telemetry records Avoid hepatotoxic agents Cardiology is following Continue monitoring Goals of care discussed with the patient for 20 minutes; full code Late Entry. This medical document was created using an electronic medical record system with computerized dictation system. Although this document has been carefully reviewed, there might still be some phonetic and typographical errors. These areas are purely typographical due to imperfections of the software programs, and do not reflect any compromise in the patient's medical care. Plan discussed with: Patient, Other (Nurse) Date of Service: Apr 24, 2025 Billing Provider: ALEKSANDAR WALTERS MD Common Visit Codes: [id number] INP/OBS CARE(HIGH) Secondary Visit Codes: [id number] CARE PLAN 30 MINUTES (20 minutes) ALEKSANDAR WALTERS MD Apr 24, 2025 07:38
[2025-04-24 08:10] LABS: Cholesterol 161 mg/dL (< 200)
[2025-04-24 08:26] LABS: HDL Cholesterol 37 mg/dL (40-59); Triglycerides 151 mg/dL (< 150)
[2025-04-24] MEDS: ONDANSETRON HCL 4 MG/2 ML VIAL IV PRN (09:21)
[2025-04-24] MEDS ORDERED: ASPITAB34 PO (09:33)
--- NOTE | 2025-04-24 13:40 | DVHPN2 ---
Consult Progress Note Subjective Review of Systems: HEENT:Abnormal (Migraine), CVS:Normal (Denies active or overnight chest pain palpitations or shortness of breath.) Objective vital signs Vital Sign Date Time Temp Pulse Resp B/P (MAP) Pulse Ox O2 Delivery O2 Flow Rate FiO2 04/24/25 08:39 98.0 70 16 132/83 (99) 97 98.0 04/24/25 08:00 Room Air* 0 21 Total Intake and Output 04/23/25 04/23/25 04/24/25 15:00 23:00 07:00 Intake Total 1000 ml 850 ml 840 ml Balance 1000 ml 850 ml 840 ml medications Current Medications Medications Dose Ordered Sig/Sven Route Start Time Stop Time Status Last Admin Dose Admin Sodium Chloride 10 ml Q8HR IV 04/23/25 14:00 04/24/25 06:29 10 ML Docusate Sodium 100 mg BIDPRN PRN PO 04/23/25 09:15 Acetaminophen 650 mg Q6HP PRN PO 04/23/25 09:15 04/23/25 19:49 650 MG Acetaminophen/ Hydrocodone Bitart 1 tab Q4HP PRN PO 04/23/25 09:15 04/24/25 06:29 1 TAB Hydromorphone HCl 0.5 mg Q4HP PRN IV 04/23/25 09:15 Ondansetron HCl 4 mg Q4HP PRN IV 04/23/25 09:15 04/24/25 09:21 4 MG Enoxaparin Sodium 40 mg DAILY SC 04/23/25 10:00 04/24/25 10:20 40 MG Nitroglycerin 0.4 mg Q5MINP PRN SL 04/23/25 09:15 Morphine Sulfate 2 mg Q30M PRN IV 04/23/25 09:15 04/23/25 21:27 2 MG Ceftriaxone Sodium 50 ml @ 100 mls/hr DAILY@09 IV 04/24/25 09:00 04/24/25 10:17 100 MLS/HR Aspirin 81 mg DAILY PO 04/24/25 10:00 Atorvastatin Calcium 40 mg HS PO 04/24/25 22:00 Examination: CVS:Normal (Telemetry reviewed, consistent with sinus rhythm at 65 beats per minute.) laboratory and microbiology Laboratory Tests 04/24/25 04:47 Test 04/24/25 04:47 Range/Units Serum Glucose 86 74-106 mg/dL Problem List/Assessment/Plan Problem List/Assessment/Plan Assessment * NSTEMI - mild borderline ST and T-wave abnormality on EKG review. Normal EF on echo. S/p coronary angiogram with no significant obstructive disease noted. * Palpitations- continue telemetry monitoring. Check TSH/T4. If no significant events noted during admission recommend outpatient event monitoring. Case Discussed with Dr Michel. Family care discussed with the patient. Results reviewed, normal EF on echo. No obstructive disease noted on coronary angiogram. Plan for continued outpatient follow up for event monitoring due to significant palpitations to rule out any arrhythmias. No further cardiac workup indicated at this time, patient is stable for DC from Cardiology standpoint. This medical document was created using an electronic medical record system with voice recognition software and computerized dictation system. Although this document has been carefully reviewed, there might still be some phonetic and typographical errors. Occasional wrong-word or ``sound-alike substitutions may have occurred due to the inherent limitations of voice recognition software. These areas are purely typographical due to imperfections of the software programs and do not reflect any compromise in the patient's medical care. Please read the chart carefully and recognize, using context, where these substitutions have occurred. Thank you for allowing me to participate in the management of this patient. The treatment plan was discussed with and agreed upon by patient/family including requesting consultants and ordering of imaging/procedures. Plan discussed with: Patient Date of Service: Apr 24, 2025 Billing Provider: JACQUELINE MIRANDA Common Visit Codes: [id number] INP/OBS CARE(HIGH) JACQUELINE MIRANDA Apr 24, 2025 13:40
--- NOTE | 2025-04-24 13:43 | ECG ---
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
[2025-04-24] MEDS ORDERED: ASPITAB37 PO (14:25)
[2025-04-24] MEDS: ATORVASTATIN 20 MG TAB PO SCH (21:20)
--- NOTE | 2025-04-24 21:28 | DVHPN2 ---
Consult Progress Note Subjective Review of Systems: HEENT:Abnormal (Migraine), CVS:Normal (Denies active or overnight chest pain palpitations or shortness of breath) Other Systems: Patient was seen and evaluated in follow up. Patient complains of nausea and reports yellow emesis with food. AST 116, ALT 44. Telemetry reviewed. Consistent with sinus rhythm at 65 beats per minute. Objective vital signs Vital Sign Date Time Temp Pulse Resp B/P (MAP) Pulse Ox O2 Delivery O2 Flow Rate FiO2 04/24/25 13:00 98.0 62 16 130/78 (95) 96 98.0 04/24/25 08:00 Room Air* 0 21 Total Intake and Output 04/23/25 04/23/25 04/24/25 15:00 23:00 07:00 Intake Total 1000 ml 850 ml 840 ml Balance 1000 ml 850 ml 840 ml medications Current Medications Medications Dose Ordered Sig/Sven Route Start Time Stop Time Status Last Admin Dose Admin Sodium Chloride 10 ml Q8HR IV 04/23/25 14:00 04/24/25 14:03 10 ML Docusate Sodium 100 mg BIDPRN PRN PO 04/23/25 09:15 Acetaminophen 650 mg Q6HP PRN PO 04/23/25 09:15 04/23/25 19:49 650 MG Acetaminophen/ Hydrocodone Bitart 1 tab Q4HP PRN PO 04/23/25 09:15 04/24/25 06:29 1 TAB Hydromorphone HCl 0.5 mg Q4HP PRN IV 04/23/25 09:15 Ondansetron HCl 4 mg Q4HP PRN IV 04/23/25 09:15 04/24/25 09:21 4 MG Enoxaparin Sodium 40 mg DAILY SC 04/23/25 10:00 04/24/25 10:20 40 MG Nitroglycerin 0.4 mg Q5MINP PRN SL 04/23/25 09:15 Morphine Sulfate 2 mg Q30M PRN IV 04/23/25 09:15 04/23/25 21:27 2 MG Ceftriaxone Sodium 50 ml @ 100 mls/hr DAILY@09 IV 04/24/25 09:00 04/24/25 10:17 100 MLS/HR Aspirin 81 mg DAILY PO 04/24/25 10:00 Atorvastatin Calcium 40 mg HS PO 04/24/25 22:00 Examination: GENERAL:Normal, HEENT:Normal, NECK:Normal, LUNGS:Normal, CVS:Normal, ABDOMEN:Normal, MSK:Normal laboratory and microbiology Laboratory Tests 04/24/25 04:47 Test 04/24/25 04:47 Range/Units Serum Glucose 86 74-106 mg/dL Problem List/Assessment/Plan Problem List/Assessment/Plan Assessment NSTEMI. Palpitations. Plan/Recommendation Continued all current supportive medical care. Patient has been seen by Jimbo Ritter NP on my behalf, him and I discussed the plan with the patient. Continue telemetry monitoring. Check TSH/T4. If no significant events noted during admission recommend outpatient event monitoring. S/p coronary angiogram with no significant obstructive disease noted. Family care discussed with the patient. Results reviewed, normal EF on echo. No obstructive disease noted on coronary angiogram. Plan for continued outpatient follow up for event monitoring due to significant palpitations to rule out any arrhythmias. No further cardiac workup indicated at this time, patient is stable for DC from Cardiology standpoint. Additional plan as per the hospital course. Plan discussed with: Patient Date of Service: Apr 24, 2025 Billing Provider: TASIA PERALTA MD Common Visit Codes: [id number] INP/OBS CARE(HIGH) TASIA PERALTA MD Apr 24, 2025 15:17
[2025-04-25 01:00] VITALS: BP 121/70; PULSE 59; RESP 14; TEMP 98; O2SAT 96
[2025-04-25 05:00] VITALS: BP 124/81; PULSE 58; RESP 14; TEMP 97.9; O2SAT 97
[2025-04-25 06:45] LABS: Hematocrit 42.6 % (36.0-46.0); Hemoglobin 14.3 g/dL (12.2-16.2); Mean Corpuscular Hemoglobin 27.9 pg (28.0-32.0); Mean Corpuscular Volume 83.2 fL (80.0-100.0); Nucleated Red Blood Cells % 0.1 %
[2025-04-25 06:59] LABS: Alkaline Phosphatase 94 U/L (46-116); Anion Gap 10 (5-15); BUN/Creatinine Ratio 10.6 (10.0-20.0); Calcium 9.0 mg/dL (8.7-10.4); Carbon Dioxide 26 mmol/L (20-31); Chloride 104 mmol/L (98-107); Glucose 88 mg/dL (74-106); Potassium 3.8 mmol/L (3.5-5.1); Sodium 140 mmol/L (136-145)
[2025-04-25 07:00] LABS: Alanine Aminotransferase 50 U/L (7-40); Blood Urea Nitrogen 7 mg/dL (9-23); Total Protein 6.9 g/dL (5.7-8.2)
[2025-04-25 07:01] LABS: Albumin 3.9 g/dL (3.2-4.8); Bilirubin, Total 0.4 mg/dL (0.2-1.0)
[2025-04-25 08:00] VITALS: PULSE 59
[2025-04-25 08:37] VITALS: BP 121/79; PULSE 64; RESP 16; TEMP 98.1; O2SAT 98
[2025-04-25 13:29] VITALS: BP 123/84; PULSE 69; RESP 16; TEMP 98; O2SAT 100
[2025-04-25] MEDS ORDERED: PANT40TA2 PO (14:29)
--- NOTE | 2025-04-25 14:31 | DVHDS2 ---
Discharge Summary Date of Admission Apr 23, 2025 at 09:12 Date of Discharge: Apr 25, 2025 Labs/Diagnostic Data: Laboratory Results Test 04/25/25 05:36 04/24/25 04:47 04/23/25 14:34 04/23/25 13:13 White Blood Count 10.0 10^3/uL (4.4-10.8) Red Blood Count 5.11 10^6/uL (4.0-5.20) Hemoglobin 14.3 g/dL (12.2-16.2) Hematocrit 42.6 % (36.0-46.0) Mean Corpuscular Volume 83.2 fL (80.0-100.0) Mean Corpuscular Hemoglobin 27.9 pg (28.0-32.0) Mean Corpuscular Hemoglobin Concent 33.6 g/dL (32.0-36.0) Red Cell Distribution Width 14.2 % (11.8-14.3) Platelet Count 229 10^3/uL (140-450) Mean Platelet Volume 10.0 fL (6.9-10.8) Neutrophils (%) (Auto) 65.4 % (37.0-80.0) Lymphocytes (%) (Auto) 24.8 % (10.0-50.0) Monocytes (%) (Auto) 6.5 % (0.0-12.0) Eosinophils (%) (Auto) 2.6 % (0.0-7.0) Basophils (%) (Auto) 0.7 % (0.0-2.0) Neutrophils # (Auto) 6.6 10 ^3/uL (1.6-8.6) Lymphocytes # (Auto) 2.5 10 ^3/uL (0.4-5.4) Monocytes # (Auto) 0.7 10 ^3/uL (0-1.3) Eosinophils # (Auto) 0.3 10 ^3/uL (0-0.8) Basophils # (Auto) 0.1 10 ^3/uL (0-0.2) Nucleated Red Blood Cells 0.1 % Sodium Level 140 mmol/L (136-145) Potassium Level 3.8 mmol/L (3.5-5.1) Chloride Level 104 mmol/L (98-107) Carbon Dioxide Level 26 mmol/L (20-31) Anion Gap 10 (5-15) Blood Urea Nitrogen 7 mg/dL (9-23) Creatinine 0.66 mg/dL (0.550-1.02) Glomerular Filtration Rate Calc 113 mL/min (>90) BUN/Creatinine Ratio 10.6 (10.0-20.0) Serum Glucose 88 mg/dL (74-106) Calcium Level 9.0 mg/dL (8.7-10.4) Total Bilirubin 0.4 mg/dL (0.2-1.0) Aspartate Amino Transferase (AST) 66 U/L (13-40) Alanine Aminotransferase (ALT) 50 U/L (7-40) Alkaline Phosphatase 94 U/L (46-116) Total Protein 6.9 g/dL (5.7-8.2) Albumin 3.9 g/dL (3.2-4.8) Triglycerides Level 151 mg/dL (< 150) Cholesterol Level 161 mg/dL (< 200) LDL Cholesterol 104 mg/dL (< 100) HDL Cholesterol 37 mg/dL (40-59) D-Dimer, Quantitative 0.43 mg/L FEU (0.0-0.49) Free Thyroxine (T4) Calculated 1.22 ng/dL (0.89-1.76) Test 04/23/25 11:55 04/23/25 11:10 04/23/25 07:50 Urine Test Negative (Negative) Urine Opiates Screen Neg (NEGATIVE) Urine Fentanyl Screen Neg (NEGATIVE) Urine Barbiturates Screen Neg (NEGATIVE) Urine Phencyclidine Screen Neg (NEGATIVE) Urine Amphetamines Screen Neg (NEGATIVE) Urine Benzodiazepines Screen Neg (NEGATIVE) Urine Cocaine Screen Neg (NEGATIVE) Urine Cannabinoids Screen Neg (NEGATIVE) Troponin I High Sensitivity 1602 ng/L (</=34) Thyroid Stimulating Hormone (TSH) 2.48 uIU/mL (0.55-4.78) Other Laboratory Tests 04/25/25 05:36 Brief Hx & Hospital Course: 39 YEAR OLD FEMALE PRESENTS TO THE ED WITH COMPLAINT OF CHEST PAIN . PATIENT STATES SHE HAS BEEN HAVING CHEST PAIN SINCE 5:30 A.M. PATIENT STATES THE PAIN IS SUBSTERNAL, RADIATING TO HER ESOPHAGUS AND RADIATING TO THE RIGHT UPPER BACK. PATIENT STATES THE PAIN IS BURNING IN NATURE, CONSTANT BUT DENIES ANY ASSOCIATED EXACERBATING OR RELIEVING FACTORS. PATIENT STATES SHE HAS CURRENT STRESSORS AT HOME OF FAMILY. PATIENT DENIES ANY PAST CARDIAC HISTORY PATIENT STATES SHE HAS HAD THESE SYMPTOMS EARLIER THIS YEAR. PATIENT DENIES FEVER, CHILLS, SHORTNESS OF BREATH, CHEST PAIN, ABDOMINAL PAIN, NAUSEA, VOMITING, HEADACHE, OR OTHER COMPLAINTS. NO OTHER SYMPTOMS OR MODIFYING FACTORS AT THIS TIME. PATIENT IS ALERT, ORIENTED X 4, AND HAS STEADY GAIT. 04/25: Patient presented with chest pain, found to have NSTEMI. Admitted to rule out type 1. CTA PE study done which was negative. Angiogram cardiac done which showed no significant stenosis or central stenosis. Patient's chest pain resolved. Possibility patient has chest pain due to costochondritis. Troponins were up to 1000. On initial presentation patient also had leukocytosis with neutrophilia. Patient was treated as a pneumonia. Patient's vital signs stable, cardiology sign off, stable for discharge as per plan below. Patient we will have to do trial of Protonix 40 daily, follow up with PCP, continue other home medications. Patient has transaminitis likely DELGADILLO, has been told she has fatty liver in the past. Diagnosis: Chest pain likely costochondritis NSTEMI likely type 2 Sirs with AOD Chronic GERD possible Transaminitis History of [place] Mm pleural based nodule along medial base of right lower lobe of the lung Obesity BMI 39.9 Mixed dyslipidemia Chronic palpitations Chronic migraines Plan: -Continue Protonix 40 mg daily for 30 days Patient to return to work on 04/28/2025 -continue other home medication -follow up with PCP to review discharge -[place] clinic follow up Condition at Discharge: Fair Final Diagnosis/Problems List Chest pain likely costochondritis NSTEMI likely type 2 Sirs with AOD Chronic GERD possible Transaminitis History of [place] Mm pleural based nodule along medial base of right lower lobe of the lung Obesity BMI 39.9 Mixed dyslipidemia Chronic palpitations Chronic migraines Discharge Disposition: Home Discharge Instruct/Medications Scheduled PRN [id number] (Excedrin Extra Strength), 1 TAB PO Q6HPRN PRN for FOR HEADACHE, (Reported) Miscellaneous Medications Semaglutide (Ozempic), 2 MG SC, (Reported) Discharge Statement: "Patient was advised to return to the ER or call 911 if any headaches, dizziness, shortness of breath, chest pain, abdominal pain, bleeding, fevers, or worsening of medical condition. Patient was counseled about treatment plan, medications, possible side effects, patientverbalized understanding. All questions were answered to the best of my ability. This discharge took greater then 30 minutes in planning, reviewing documentation, counseling the patient, and discussing with other team members." ASSESSMENT ASSESSMENT Assessment Date of Service: Apr 25, 2025 Billing Provider: YI JULIAN MD Common Visit Codes: [id number] DISCH DAY >30min YI JULIAN MD Apr 25, 2025 14:31
[2025-04-25 17:11] VITALS: BP 131/68; TEMP 36.7
--- NOTE | 2025-04-25 23:59 | DVHPN2 ---
Progress Note - Dictate Date Seen: Apr 25, 2025 Medical Necessity Reason Pt with a Central, PICC or Fol: No Subjective Patient was seen and evaluated in follow up. Patient has no new complaints at this time. Patient denies any cardiac symptoms. Patient is cardiac stable for discharge. Telemetry reviewed. vital signs Vital Sign Date Time Temp Pulse Resp B/P (MAP) Pulse Ox O2 Delivery O2 Flow Rate FiO2 04/25/25 17:11 36.7 04/25/25 13:29 69 16 123/84 (97) 100 04/25/25 08:00 Room Air* 0 21 Total Intake and Output 04/24/25 04/24/25 04/25/25 15:00 23:00 07:00 Intake Total 50 ml 1200 ml 300 ml Output Total 300 ml Balance -250 ml 1200 ml 300 ml objective GENERAL: Alert and oriented x 3. No acute distress. EYES: PERRL, EOMI. Anicteric. HENT: Moist mucous membranes. LUNGS: Clear to auscultation bilaterally. CARDIOVASCULAR: Regular rate and rhythm. ABDOMEN: Soft, non-tender and non-distended. EXTREMITIES: No edema. NEUROLOGIC: No focal neurological deficits. SKIN: Warm, dry. laboratory and microbiology Laboratory Tests 04/25/25 05:36 Test 04/25/25 05:36 Range/Units Serum Glucose 88 74-106 mg/dL Problem List NSTEMI. Palpitations. Assessment/Plan Continued all current supportive medical care. Continue telemetry monitoring. If no significant events noted during admission recommend outpatient event monitoring. S/p coronary angiogram with no significant obstructive disease noted. Results reviewed, normal EF on echo. No obstructive disease noted on coronary angiogram. Plan for continued outpatient follow up for event monitoring due to significant palpitations to rule out any arrhythmias. No further cardiac workup indicated at this time, patient is stable for DC from Cardiology standpoint. Additional plan as per the hospital course. Plan discussed with: Patient TASIA PERALTA MD Apr 25, 2025 23:59
== END 2025-04-25 18:16 | disposition home or self-care (01) | DRG 205 ==
LOC: ER 07:38 → OVERFLOW 09:12 → EEVIPCON 09:12 → TELE-EAST 15:56
PROVIDERS: ADMIT Student in an Organized Health Care Education/Training Program; ATTEND Student in an Organized Health Care Education/Training Program
PROC: 4A023N7 Measurement of Cardiac Sampling and Pressure, Left Heart, Percutaneous Approach (ICD-10-PCS; principal; 2025-04-23)
PROC: B211YZZ Fluoroscopy of Multiple Coronary Arteries using Other Contrast (ICD-10-PCS; 2025-04-23)
PROC: B215YZZ Fluoroscopy of Left Heart using Other Contrast (ICD-10-PCS; 2025-04-23)
PROC: B34HZZZ Ultrasonography of Right Upper Extremity Arteries (ICD-10-PCS; 2025-04-23)
PROC: 03HY32Z Insertion of Monitoring Device into Upper Artery, Percutaneous Approach (ICD-10-PCS; 2025-04-23)
DX: M94.0 Chondrocostal junction syndrome [Tietze] (principal); I21.A1 Myocardial infarction type 2; R65.11 Systemic inflammatory response syndrome (SIRS) of non-infectious origin with acute organ dysfunction; E66.01 Morbid (severe) obesity due to excess calories; K76.0 Fatty (change of) liver, not elsewhere classified; Z68.39 Body mass index [BMI] 39.0-39.9, adult; I25.10 Atherosclerotic heart disease of native coronary artery without angina pectoris; K21.9 Gastro-esophageal reflux disease without esophagitis; E78.2 Mixed hyperlipidemia; G43.909 Migraine, unspecified, not intractable, without status migrainosus; Z88.2 Allergy status to sulfonamides
CPT/HCPCS: 36415; 71045; 71275; 80053; 80061; 80307; 81025; 84439; 84443; 84484; 85025; 85379; 87040; 93005; 93306; 93458; 96374; 99152; G0378; J2250; J2405; Q9967